=== PATIENT | female | born 1985 | race Caucasian/White ===

== ENCOUNTER 2017-01-20 05:50 | Emergency (ER) | payer MEDICAID ==
[~2017-01-20] VITALS: Ht 154.9 cm; Wt 73.6 kg
[~2017-01-20 05:50] MED LIST: HYDR-3498 PO; IBUP-1542 PO
[2017-01-20 05:52] VITALS: Ht 154.9 cm; Wt 73.6 kg
[2017-01-20] MEDS ORDERED: ACET325T33 PO (06:22)
--- NOTE | 2017-01-20 07:52 | ERD ---
ER Documentation Chief Complaint Date/Time DATE: 01/20/17 TIME: 07:50 Chief Complaint sore throat x 1 week, cough x 2 days HPI Patient is a 31-year-old female with no medical problems who presents with sore throat and cough. She has had these symptoms for the past 2 days. She said that she had a fever a few days ago. She tried Tylenol. She is currently taking amoxicillin for urine infection over the past 2 days. She is . Upon review of old medical records the patient has multiple visits to the ER for various complaints. She does not remember the name of her primary doctor. ROS All systems reviewed and are negative except as per history of present illness. Medications Home Meds Active Scripts Acetaminophen* (Tylenol*) 325 Mg Tablet, 2 TAB PO Q8 Y for PAIN AND OR ELEVATED TEMP, #20 TAB Prov:DANIEL TERRELL MD 01/20/17 Hydrocodone Bit-Acetaminophen* ([place]*) 5-325 Mg Tab, 1 TAB PO QHS Y for PAIN, # 10 TAB 0 Refills Prov:ENRIQUE PRUITT PA-C 11/25/15 Ibuprofen* (Motrin*) 600 Mg Tab, 600 MG PO BID, #30 TAB 0 Refills Prov:ENRIQUE PRUITT PA-C 11/25/15 Allergies Allergies: Coded Allergies: No Known Allergy (Unverified , 01/20/17) PMhx/Soc History of Surgery: Yes (c/section, cholecystectomy) Anesthesia Reaction: No Hx Neurological Disorder: No Hx Respiratory Disorders: No Hx Cardiac Disorders: No Hx Psychiatric Problems: No Hx Miscellaneous Medical Probl: No Hx Alcohol Use: No Hx Substance Use: No Hx Tobacco Use: No Smoking Status: Never smoker FmHx Family History: diabetes Physical Exam Vitals Vital Signs Date Time Temp Pulse Resp B/P Pulse Ox O2 Delivery O2 Flow Rate FiO2 01/20/17 05:52 98.5 104 20 119/58 99 Physical Exam Const: No acute distress Head: Atraumatic Eyes: Normal Conjunctiva ENT: Normal External Ears, Nose and Mouth. No signs of tonsillar swelling, uvular deviation, or stridor over the neck Neck: Full range of motion..~ No meningismus. No stridor over the neck Resp: Clear to auscultation bilaterally Cardio: Regular rate and rhythm, no murmurs Abd: Soft, abdomen without pain Skin: No petechiae or rashes Back: No midline or flank tenderness Ext: No cyanosis, or edema Neur: Awake and alert Psych: Normal Mood and Affect Procedures/MDM Patient is a 31-year-old female presents with acute sore throat. She also has cough. She is taking amoxicillin which would be an appropriate antibiotic if she does have pharyngitis or bronchitis. At this point however I see no signs of acute pharyngitis or peritonsillar abscess or retropharyngeal abscess or epiglottitis. I believe outpatient management is appropriate. The patient is otherwise well-appearing and well-hydrated. She has no voice changes. She can follow-up with her primary doctor within 24-48 hours and can return if symptoms worsen. I believe outpatient management is appropriate. Departure Diagnosis: Primary Impression: Sore throat Condition: Fair Patient Instructions: Self-Care for Sore Throats Referrals: Your doctor Additional Instructions: Llame al doctor nombrado abajo (Referral Sources) MAANA y jewels mario alberto MADDIE PARA DENTRO DE MARIO ALBERTO SEMANA. Dgale a la secretaria que nosotros le instruimos hacer esta maddie.Avise o llame si long condicin se empeora antes de la maddie. DANIEL TERRELL MD Jan 20, 2017 07:52
== END 2017-01-20 06:31 | disposition home or self-care (01) ==
LOC: FTE 05:50
DX: O99.512 Diseases of the respiratory system complicating pregnancy, second trimester (principal); J02.9 Acute pharyngitis, unspecified; Z3A.22 22 weeks gestation of pregnancy
CPT/HCPCS: 99283

== ENCOUNTER 2017-03-17 11:08 | Outpatient (CLI) | payer MEDICAID ==
[~2017-03-17 11:08] MED LIST changes: +ACET325T33 PO; +CALCIUM BU; +IRON BU; +PREN-19 PO
[2017-03-17 11:50] VITALS: BP 118/58; PULSE 73; RESP 18
[2017-03-17] MEDS ORDERED: PRENAT PO (11:56)
[2017-03-17] MEDS ORDERED: FERR325C PO (11:57)
--- NOTE | 2017-03-17 13:04 | RADRPT ---
PROCEDURE: Limited obstetric ultrasound CLINICAL INDICATION: Pain , labor TECHNIQUE: Multiple transverse and longitudinal grayscale images of the pelvis were obtained miranda sabdominally and transvaginally.. COMPARISON: None FINDINGS: The cervix is closed with a length of 4.1 cm. There is a single viable intrauterine gestation. Cardiac activity is present with 140 beats per min addie. There is a vertex presentation. The placenta is anterior. There is no evidence for an abruption or placenta previa. RPTAT: AA IMPRESSION: Cervix length measures 4.1 cm. .Meek Persaud MD, Date Time Electronically viewed and signed by .Meek Persaud MD, on 03/17/2017 13:04 .S/
== END 2017-03-17 14:34 | disposition home or self-care (01) ==
LOC: OBT 11:08 → L-D 11:08 → OBT 14:34
PROVIDERS: ATTEND Obstetrics & Gynecology
DX: O47.00 False labor before 37 completed weeks of gestation, unspecified trimester (principal); Z3A.00 Weeks of gestation of pregnancy not specified
CPT/HCPCS: 76817; Z7500; G0463

== ENCOUNTER 2017-04-30 10:12 | Inpatient (IN) | payer MEDICAID ==
[~2017-04-30] VITALS: Ht 152.4 cm; Wt 78.0 kg
[~2017-04-30 10:12] MED LIST changes: -ACET325T33 PO; -CALCIUM BU; +FERR325C PO; -HYDR-3498 PO; -IBUP-1542 PO; -IRON BU; -PREN-19 PO; +PRENAT PO
[2017-04-30] MEDS ORDERED: ONDANSETRON 4 MG INJ IV STA (10:44)
[2017-04-30] MEDS ORDERED: OXYTOCIN 30 UNITS/LR 500 ML IV PRN ×2 (11:00→17:00)
[2017-04-30] MEDS ORDERED: OXYTOCIN 30 UNITS/LR 500 ML IV SCH (11:00)
[2017-04-30] MEDS ORDERED: CARBOPROST 250 MCG INJ IM PRN ×2 (11:00→17:00)
[2017-04-30] MEDS ORDERED: CEFAZOLIN 2 GM/50 ML (PMX) 50 ML IV SCH (11:00)
[2017-04-30] MEDS ORDERED: MISOPROSTOL 200 MCG TAB PR PRN ×2 (11:00→17:00)
[2017-04-30] MEDS ORDERED: CITRIC ACID/SODIUM CITRATE 15 ML CUP PO ONE ×2 (11:00)
[2017-04-30] MEDS ORDERED: METHYLERGONOVINE 0.2 MG INJ IM PRN ×2 (11:00→17:00)
[2017-04-30 11:08] LABS: ADD SCAN DIFF NO
[2017-04-30 11:10] LABS: BASOPHILS % 0.1 % (0.0-2.0); EOSINOPHILS # 0.1 10^3/ul (0.0-0.5); HEMOGLOBIN 10.8 g/dl (12.0-16.0); LYMPHOCYTES # 1.5 10^3/ul (0.8-2.9); LYMPHOCYTES % 20.5 % (15.0-51.0); MEAN CORPUSCULAR HEMOGLOBIN 30.2 pg (29.0-33.0); MEAN CORPUSCULAR HGB CONC 32.7 g/dl (32.0-37.0); MEAN CORPUSCULAR VOLUME 92.2 fl (82.0-101.0); MONOCYTE # 0.6 10^3/ul (0.3-0.9); MONOCYTES % 8.1 % (0.0-11.0); NEUTROPHILS % 69.3 % (39.0-77.0); PLATELET COUNT 283 10^3/UL (140-415); RED BLOOD COUNT 3.58 10^6/ul (4.20-5.40); RED CELL DISTRIBUTION WIDTH 15.1 % (11.5-14.5); WHITE BLOOD COUNT 7.3 10^3/ul (4.8-10.8)
[2017-04-30 11:40] LABS: INR 0.95; PROTIME 12.7 Sec (12.2-14.2)
[2017-04-30 12:05] LABS: PARTIAL THROMBOPLASTIN TIME 27.9 Sec (25.0-35.0)
[2017-04-30] MEDS ORDERED: DEXAMETHASONE 4 MG/ML 1 ML INJ ONE (12:25)
[2017-04-30] MEDS ORDERED: morphine SULFATE/PF (10 MG/10 ML) INJ ONE (12:25)
[2017-04-30] MEDS ORDERED: PHENYLephrine (100 MCG/ML) 5ML SYG ONE (12:25)
[2017-04-30] MEDS ORDERED: FENTAnyl 50 MCG/ML VIAL ONE (12:25)
[2017-04-30] MEDS ORDERED: OXYTOCIN 30 UNITS/LR 500 ML IV ONE (13:29)
[2017-04-30] MEDS ORDERED: NALOXONE (0.4 MG/ML) INJ IV PRN (13:30)
[2017-04-30] MEDS ORDERED: ZOLPIDEM 5 MG TAB PO PRN (13:30)
[2017-04-30] MEDS ORDERED: PROCHLORPERAZINE 10 MG INJ IV PRN (13:30)
[2017-04-30] MEDS ORDERED: HYDROmorphONE 1 MG/ML SYG IV PRN ×2 (13:30)
[2017-04-30] MEDS ORDERED: ONDANSETRON 4 MG INJ IV PRN (13:30)
[2017-04-30] MEDS ORDERED: DIPHENHYDRAMINE 50 MG INJ IV PRN (13:30)
--- NOTE | 2017-04-30 13:48 | HP ---
Date/Time of Note Date/Time of Note DATE: 04/30/17 TIME: 13:45 OB - History Hx of Present Free Text/Dictation admitted for repeat C/S + BTL Last Menstrual Period: Aug 16, 2016 Estimated Due Date: May 07, 2017 : 3 Para: 2 Care: Good Care Ultrasounds: Normal mid trimester US Obstetrical Complications: None Medical Complications: None Past Family/Social History * Past Medical, Surgical, Family and Obstetric Histories reviewed from chart. Blood Type: O+ Rubella: immune RPR/VDRL: Negative GBS Status: Positive HBsAG: Negative OB Admission Exam Physical Exam HEENT: WNL Heart: Rhythm Normal Lungs: Clear, Equal Abdomen: WNL Extremities: Normal Reflexes: Normal Cervical Dilatation: None Effacement: 0% Station: -3 Membranes: Intact Amniotic Fluid: Clear Heart Rate: 150's Accelerations: Accelerations Present Decelerations: No Decelerations Varibility: Marked Contractions on Admission: None Last 72 hours Lab Results CBC & BMP 04/30/17 10:30 OB Assessment/Plan Reason for admission: section Other Assessment: term gestation previous C/S X 2 desired sterilization Other plan: repeat C/S + BTL MADHURI SIMEON MD Apr 30, 2017 13:48
--- NOTE | 2017-04-30 13:51 | OPR ---
Operative Report Planned Procedure Procedure date Apr 30, 2017 Procedure(s) repeat C/S Performed by: MADHURI SIMEON MD Assisting provider: LAN WILBURN MD Anesthesiologist: ASHISH SPEARS DO Anesthesia Type: spinal Procedure Description Under satisfactory anaesthesia a Pfannenstiel incision was made two fingerbreadth above and parallel to the symphysis of pubis around the previous scar and previous scar was removed Incision was extended laterally to the border of the Recti muscles on either sides. Incision was carried down with sharp and blunt dissection until fascia was reached. Anterior Recti muscle fascia was incised in mid portion and incision extended laterally to the border of skin incision. Fascia was mobilized from muscle superiorly and Recti muscles were from midline using sharp and blunt dissection. Peritoneum was visualized; Avoiding bowel and bladder it was incised . Incision was extended superiorly and inferiorly. Bladder blade was placed. Posterior peritoneum covering the lower segment of the uterus and lower segment of the uterus were incised.Low transverse uterine incision was made on lower segment of the uterus. Incision extended laterally to the border of Round Lig. on either sides and baby was delivered from OT. position . Amniotic fluid appeared clear. Cord blood was obtained and cord had 3 vessels . Placenta was delivered spontaneously and appeared intact and complete. Intrauterine cavity was rubbed with a laparotomy sponge. Uterine incision was closed in 2 layers using running stitches of No1 Monocryl. Hemostasis appeared secure. Ovaries and Fallopian tubes were within normal limits. Bilateral Tubal Ligation was performed by following procedure: R fallopian tube was raised in mid portion; a Collette clamp was placed below the fimbriae extending to proximal portion of the fallopian tube. Another clamp was placed parallel to the first and after incising the fallopian tube the stump was sutured using 0 Vicryl stitch. Hemostasis was secure . Same procedure was done on fallopian tube on the opposite side. Hemostasis appeared to be secure on ligated sites of either fallopian tubes. Announcing needle, lap sponge and instrument count to be correct abdomen was closed in layers as follows: Peritoneum and Recti muscles with running stitches of 20 Vicryl. Fascia with running stitch of No 1 PDS. Subcutaneous tissue with running stitches of 20 Chromic and skin was closed using kathy. Patient tolerated the procedure well and was transferred to [facility] in good condition. Post-Procedure Post-procedure diagnosis S/P C/S + BTL Findings: Live Baby Specimen removed: Yes Specimen description segments of R and L fallopian tubes Complications: None Pt Condition post procedure: stable Disposition: PACU Physician Certification I, the undersigned physician, hereby certify that I have discussed the procedure described in this consent form with this patient (or the patient's legal site safety representative), including: * The risk and benefits of the procedure; * Any adverse reactions that may reasonably be expected to occur; * Any alternative efficacious methods of treatment which may be medically viable ; * The potential problems that may occur during recuperation; * Potential for blood transfusion and associated risks/benefits; and * Any research or economic interest I may have regarding this treatment. I further certify that the patient/legally responsible person was encouraged to ask question and that all questions were answered. MADHURI SIMEON MD Apr 30, 2017 13:51
[2017-04-30 16:30] VITALS: BP 117/51; PULSE 65; RESP 18
[2017-04-30] MEDS: LACTATED RINGER'S 1,000 ML IV SCH (16:37)
[2017-04-30] MEDS ORDERED: LANOLIN 7 GM TUBE TOP PRN (17:00)
[2017-04-30] MEDS ORDERED: ACETAMINOPHEN/CODEINE #3 TAB PO PRN (17:00)
[2017-04-30] MEDS ORDERED: OXYCODONE/ACETAMINOPHEN (5/325) TAB PO PRN (17:00)
[2017-04-30] MEDS ORDERED: NA PHOSPHATE/BIPHOS 133 ML ENEMA PR PRN (17:00)
[2017-04-30] MEDS: KETOROLAC 30 MG INJ IV PRN (17:31)
[2017-04-30] MEDS: CLINDAMYCIN 300 MG CAP PO SCH ×2 (17:34→23:51)
[2017-04-30] MEDS: CEFAZOLIN 2 GM/50 ML (PMX) 50 ML IV SCH (17:35)
[2017-04-30 20:00] VITALS: BP 104/45; PULSE 64; RESP 18
[2017-04-30] MEDS: SENNA/DOCUSATE NA (8.6MG/50MG) TAB PO SCH (21:12)
[2017-04-30] MEDS: IBUPROFEN 800 MG TAB PO SCH (22:00)
[2017-05-01] MEDS: CEFAZOLIN 2 GM/50 ML (PMX) 50 ML IV SCH ×2 (01:20→08:35)
[2017-05-01 04:30] VITALS: BP 112/53; PULSE 63; RESP 18
[2017-05-01] MEDS: LACTATED RINGER'S 1,000 ML IV SCH ×2 (05:15→08:28)
[2017-05-01] MEDS: CLINDAMYCIN 300 MG CAP PO SCH ×4 (05:29→23:34)
[2017-05-01] MEDS: IBUPROFEN 800 MG TAB PO SCH ×3 (06:00→21:27)
[2017-05-01 08:16] LABS: ADD SCAN DIFF NO
[2017-05-01 08:18] LABS: BASOPHILS % 0.2 % (0.0-2.0); EOSINOPHILS % 0.3 % (0.0-7.0); HEMATOCRIT 31.6 % (37.0-47.0); HEMOGLOBIN 10.1 g/dl (12.0-16.0); LYMPHOCYTES % 19.9 % (15.0-51.0); MEAN CORPUSCULAR HEMOGLOBIN 29.5 pg (29.0-33.0); MEAN CORPUSCULAR VOLUME 92.4 fl (82.0-101.0); MONOCYTE # 0.8 10^3/ul (0.3-0.9); MONOCYTES % 7.7 % (0.0-11.0); NEUTROPHIL # 7.1 10^3/ul (1.6-7.5); NEUTROPHILS % 71.3 % (39.0-77.0); PLATELET COUNT 246 10^3/UL (140-415); RED BLOOD COUNT 3.42 10^6/ul (4.20-5.40); WHITE BLOOD COUNT 9.9 10^3/ul (4.8-10.8)
[2017-05-01 08:35] VITALS: BP 98/48; PULSE 74; RESP 17
[2017-05-01] MEDS: SENNA/DOCUSATE NA (8.6MG/50MG) TAB PO SCH ×2 (08:35→21:27)
[2017-05-01] MEDS ORDERED: BISACODYL 10 MG SUPP PR ONE (09:00)
[2017-05-01 12:00] VITALS: BP 96/50; PULSE 65; RESP 16
--- NOTE | 2017-05-01 12:08 | PN ---
Date/Time of Note Date/Time of Note DATE: 05/01/17 TIME: 12:06 Assessment/Plan VTE Prophylaxis VTE Prophylaxis Intervention: ambulation Lines/Catheters IV Catheter Type (from Nrsg): Peripheral IV Assessment/Plan Assessment/Plan POD # 1 S/P C/S + BTL will advance diet and ambulate Subjective 24 Hr Interval Summary NO BM passing flatus Constitutional: BM, ambulates, flatus, improved, no complaints, urine output Pain Control: well controlled Exam/Review of Systems Vital Signs Vitals Vital Signs Date Time Temp Pulse Resp B/P Pulse Ox O2 Delivery O2 Flow Rate FiO2 05/01/17 11:39 94 21 05/01/17 08:35 98.5 74 17 98/48 Room Air Intake and Output 04/30/17 04/30/17 05/01/17 15:00 23:00 07:00 Intake Total 175 ml 50 ml Output Total 200 ml Balance -25 ml 50 ml Exam Free Text/Dictation abdomen: Soft BS + Incision: covered Constitutional: alert, oriented, well developed Psych: nl mood/affect, no complaints Head: atraumatic, normocephalic Eyes: EOMI, nl conjunctiva, nl lids, nl sclera ENMT: mucosa pink and moist, nl external ears & nose, nl lips & teeth, nl nasal mucosa & septum Neck: non-tender, supple Respiratory: clear to auscultation, normal air movement Cardiovascular: nl pulses, regular rate and rhythm Gastrointestinal: nl liver, spleen, non-tender, soft Drains NONE Musculoskeletal: nl extremities to inspection, nl gait and stance Extremities: normal pulses Neurological: ETL MANAGER II-XII intact, nl mental status, nl speech, nl strength Skin: nl turgor, rash or lesions Lymph: nl lymph nodes Results Result Diagram: 05/01/17 0750 MADHURI SIMEON MD May 01, 2017 12:08
[2017-05-01] MEDS: KETOROLAC 30 MG INJ IV PRN (12:20)
--- NOTE | 2017-05-01 13:44 | PD.PPDC ---
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
[2017-05-01] MEDS ORDERED: IBUP800T25 PO (13:45)
[2017-05-01] MEDS ORDERED: Oxycodone/Acetamin (5/325) PO (13:45)
[2017-05-01 16:00] VITALS: BP 103/51; PULSE 68; RESP 16
[2017-05-01 19:35] VITALS: BP 114/62; PULSE 64; RESP 18
[2017-05-02 03:35] VITALS: BP 106/58; PULSE 69; RESP 18
[2017-05-02] MEDS: CLINDAMYCIN 300 MG CAP PO SCH ×3 (05:27→18:19)
[2017-05-02] MEDS: IBUPROFEN 800 MG TAB PO SCH ×3 (05:27→21:28)
[2017-05-02] MEDS: SENNA/DOCUSATE NA (8.6MG/50MG) TAB PO SCH ×2 (08:24→21:28)
[2017-05-02 08:30] VITALS: BP 116/61; PULSE 67; RESP 17
[2017-05-02 16:00] VITALS: BP 100/52; PULSE 69; RESP 17
--- NOTE | 2017-05-02 16:01 | PN ---
Date/Time of Note Date/Time of Note DATE: 05/02/17 TIME: 15:58 OB Subjective Subjective Subjective passing fltus no b.m OB Objective Objective Objective vss afebrile abdomen sof wound dry lochia min calf no tenderness OB Assessment/Plan Other Assessment: stable post c/s #2 Other plan: d/s home in am GENE THOMAS MD May 02, 2017 16:01
--- NOTE | 2017-05-02 18:36 | DS ---
Date/Time of Note Date/Time of Note home next day DATE: 05/02/17 TIME: 18:34 Obstetrical Discharge Record Final Diagnosis Final Diagnosis: Term delivered Vaginal Delivery Obstetrical Delivery: Bilateral Tubal Ligation Section Section: Repeat Condition on Discharge Physical Assessment Last Vitals: see nurses notes Voiding: Yes Bowel Movement: Yes Breast: Soft, non-tender, Filling Fundus: Firm Abdomen and Incision: soft bs + incision: healing Episiotomy: NA Calf Tenderness: No Patient Condition: Good MADHURI SIMEON MD May 02, 2017 18:36
--- NOTE | 2017-05-02 18:38 | DS ---
Date/Time of Note Date/Time of Note DATE: 05/02/17 TIME: 18:36 Discharge Summary Admission/Discharge Info Admit Date/Time Apr 30, 2017 at 10:12 Discharge Date/Time 05/03/2017 Final Diagnosis S/P C/S + BTL Patient Condition: Good Procedures repeat C/S + BTL Hx of Present Illness 31 y/o female had repeat C/S + BTL Hospital Course uncomplicated Home Meds Active Scripts [Oxycodone/Acetamin (5/325)] 1 TAB TAB No Conflict Check, 2 TAB PO Q4H Y for PAIN LEVEL 6-10, #30 0 Refills Prov:MADHURI SIMEON MD 05/01/17 Ibuprofen* (Ibuprofen*) 800 Mg Tablet, 800 MG PO Q8, #30 TAB 0 Refills Prov:MADHURI SIMEON MD 05/01/17 Reported Medications Ferrous Sulfate (Iron) Unknown Strength Capsule.er, PO, CAP 03/17/17 Multivit/Min/Fol Ac/Iron/Pren* ( S*) 1 Tab Tab, 1 TAB PO DAILY, TAB 03/17/17 Follow-up Plan 2-3 days in clinic for staple removal Primary Care Provider Care Physician No Primary MADHURI SIMEON MD May 02, 2017 18:38
[2017-05-02 19:45] VITALS: BP 119/58; PULSE 67; RESP 18
[2017-05-03] MEDS: CLINDAMYCIN 300 MG CAP PO SCH ×3 (00:14→11:32)
[2017-05-03 04:10] VITALS: BP 116/65; PULSE 61; RESP 17
[2017-05-03] MEDS: IBUPROFEN 800 MG TAB PO SCH ×2 (05:33→14:07)
[2017-05-03 07:56] VITALS: BP 114/63; PULSE 60; RESP 20
[2017-05-03] MEDS ORDERED: DIPHTH/TET/ACEL PERTUSS (ADULT) 0.5 ML VIAL IM* ONE (09:00)
[2017-05-03] MEDS ORDERED: MEASLES,MUMPS,RUBELLA VACCINE INJ SC* ONE (09:00)
[2017-05-03] MEDS: SENNA/DOCUSATE NA (8.6MG/50MG) TAB PO SCH (09:11)
== END 2017-05-03 14:50 | disposition home or self-care (01) | DRG 766 ==
LOC: L-D 10:12 → PP1 16:32
PROVIDERS: ADMIT Obstetrics & Gynecology; ATTEND Obstetrics & Gynecology
PROC: 0UL70ZZ Occlusion of Bilateral Fallopian Tubes, Open Approach (ICD-10-PCS; 2017-04-30)
PROC: 10D00Z1 Extraction of Products of Conception, Low, Open Approach (ICD-10-PCS; principal; 2017-04-30 12:30)
DX: O34.211 Maternal care for low transverse scar from previous cesarean delivery (principal); Z30.2 Encounter for sterilization; Z3A.39 39 weeks gestation of pregnancy; Z37.0 Single live birth
CPT/HCPCS: 85025; 85610; 85730; 86592; 86850; 86900; 86901; 87340; 88302; 90715; 94760; 99464; J0690; J1100; J1885; J2274; J2370; J2405; J2590; J3010; J7120

== ENCOUNTER 2017-05-19 10:39 | Emergency (ER) | payer MEDICAID ==
[~2017-05-19] VITALS: Ht 152.4 cm; Wt 67.5 kg
[~2017-05-19 10:39] MED LIST changes: +IBUP800T25 PO; +Oxycodone/Acetamin (5/325) PO
[2017-05-19 10:45] VITALS: Ht 152.4 cm; Wt 67.5 kg
[2017-05-19] MEDS ORDERED: CLIN-73 PO (11:06)
--- NOTE | 2017-05-19 11:19 | ERD ---
ER Documentation Chief Complaint Date/Time DATE: 05/19/17 TIME: 11:15 Chief Complaint Sent from for eval infection at site HPI Patient is a 31-year-old female who is status post on April 30. She is here because she went to an outside clinic and told her that they think her C- section wound might be infected so they told her to come here for treatment. She has some burning along the site. Denies fever. Denies any redness bleeding or drainage. She is currently breast-feeding. ROS All systems reviewed and are negative except as per history of present illness. Medications Home Meds Active Scripts Clindamycin Hcl* (Clindamycin Hcl*) 300 Mg Capsule, 300 MG PO TID for 10 Days, CAP Prov:NESTOR MASON PA-C 05/19/17 [Oxycodone/Acetamin (5/325)] 1 TAB TAB No Conflict Check, 2 TAB PO Q4H Y for PAIN LEVEL 6-10, #30 0 Refills Prov:MADHURI SIMEON MD 05/01/17 Ibuprofen* (Ibuprofen*) 800 Mg Tablet, 800 MG PO Q8, #30 TAB 0 Refills Prov:MADHURI SIMEON MD 05/01/17 Reported Medications Ferrous Sulfate (Iron) Unknown Strength Capsule.er, PO, CAP 03/17/17 Multivit/Min/Fol Ac/Iron/Pren* ( S*) 1 Tab Tab, 1 TAB PO DAILY, TAB 03/17/17 Allergies Allergies: Coded Allergies: No Known Allergy (Unverified , 01/20/17) PMhx/Soc History of Surgery: Yes (c/section, cholecystectomy) Anesthesia Reaction: No Hx Neurological Disorder: No Hx Respiratory Disorders: No Hx Cardiac Disorders: No Hx Psychiatric Problems: No Hx Miscellaneous Medical Probl: No Hx Alcohol Use: No Hx Substance Use: No Hx Tobacco Use: No FmHx Family History: No diabetes Physical Exam Vitals Vital Signs Date Time Temp Pulse Resp B/P Pulse Ox O2 Delivery O2 Flow Rate FiO2 05/19/17 10:45 97.8 66 20 117/56 98 Physical Exam Const: [] Head: Atraumatic Eyes: Normal Conjunctiva ENT: Normal External Ears, Nose and Mouth. Neck: Full range of motion..~ No meningismus. Resp: Clear to auscultation bilaterally Cardio: Regular rate and rhythm, no murmurs Abd: Soft, non tender, non distended. Normal bowel sounds Skin: Healing scar with some mild erythema, no surrounding erythema , no bleeding or drainage, small area of fluctuance over the right edge approximately 1 cm in diameter Procedures/MDM Patient has mild cellulitis on her surgery site. Her vital signs are normal she is afebrile well-appearing. She is currently breast-feeding. She will be started on clindamycin I recommended 2 day wound check. Recommended this patient follow up with her primary care doctor within 48 hours or return to the emergency room for any worsening of symptoms. However this time I do believe there is suitable for outpatient management. I answered all their questions and they agreed with the plan and were discharged home. Departure Diagnosis: Primary Impression: Cellulitis Condition: Stable Patient Instructions: Cellulitis Additional Instructions: Llame al doctor MACHANCE y jewels mario alberto MADDIE PARA DENTRO DE 1-2 [place].Dgale a la secretaria que nosotros le instruimos hacer esta maddie.Avise o llame si long condicin se empeora antes de la maddie. Regresa aqui si peor o no mejor. NESTOR MASON PA-C May 19, 2017 11:19
== END 2017-05-19 11:28 | disposition home or self-care (01) ==
LOC: FTE 10:39
DX: O86.0 Infection of obstetric surgical wound (principal); L03.311 Cellulitis of abdominal wall; B96.89 Other specified bacterial agents as the cause of diseases classified elsewhere
CPT/HCPCS: 99283

== ENCOUNTER 2017-05-19 16:19 | Emergency (ER) | payer MEDICAID ==
[~2017-05-19] VITALS: Ht 152.4 cm; Wt 68.0 kg
[~2017-05-19 16:19] MED LIST changes: +CLIN-73 PO
[2017-05-19 16:43] VITALS: Ht 152.4 cm; Wt 68.0 kg
--- NOTE | 2017-05-19 17:15 | ERD ---
ER Documentation Chief Complaint Date/Time DATE: 05/19/17 TIME: 17:13 Chief Complaint Patient here for a recheck HPI This 31-year-old female presents for recheck on the postop wound. She seen here this morning for postoperative pain. There is no obvious signs of infection but she was administered a prescription of clindamycin for possible early infection. She has not had a chance to fill the prescription. She went home and did have some bleeding from the right lateral aspect wound. She has no fevers or vomiting. ROS All systems reviewed and are negative except as per history of present illness. Medications Home Meds Active Scripts Clindamycin Hcl* (Clindamycin Hcl*) 300 Mg Capsule, 300 MG PO TID for 10 Days, CAP Prov:NESTOR MASON PA-C 05/19/17 [Oxycodone/Acetamin (5/325)] 1 TAB TAB No Conflict Check, 2 TAB PO Q4H Y for PAIN LEVEL 6-10, #30 0 Refills Prov:MADHURI SIMEON MD 05/01/17 Ibuprofen* (Ibuprofen*) 800 Mg Tablet, 800 MG PO Q8, #30 TAB 0 Refills Prov:MADHURI SIMEON MD 05/01/17 Reported Medications Ferrous Sulfate (Iron) Unknown Strength Capsule.er, PO, CAP 03/17/17 Multivit/Min/Fol Ac/Iron/Pren* ( S*) 1 Tab Tab, 1 TAB PO DAILY, TAB 03/17/17 Allergies Allergies: Coded Allergies: No Known Allergy (Unverified , 01/20/17) PMhx/Soc History of Surgery: Yes (c/section, cholecystectomy) Anesthesia Reaction: No Hx Neurological Disorder: No Hx Respiratory Disorders: No Hx Cardiac Disorders: No Hx Psychiatric Problems: No Hx Miscellaneous Medical Probl: No Hx Alcohol Use: No Hx Substance Use: No Hx Tobacco Use: No Physical Exam Vitals Vital Signs Date Time Temp Pulse Resp B/P Pulse Ox O2 Delivery O2 Flow Rate FiO2 05/19/17 16:43 97.0 57 20 131/63 98 Physical Exam Const: [], [id number] per Head: Atraumatic Eyes: Normal Conjunctiva ENT: Normal External Ears, Nose and Mouth. Neck: Full range of motion..~ No meningismus. Resp: Clear to auscultation bilaterally Cardio: Regular rate and rhythm, no murmurs Abd: Soft, non tender, non distended. Normal bowel sounds Skin: No petechiae or rashes. There is a healing postoperative wound. There is a small superficial dehiscence on the right lateral aspect approximately 0.5 cm with scant expressible blood. There is no obvious erythema or purulent discharge. Back: No midline or flank tenderness Ext: No cyanosis, or edema Neur: Awake and alert Psych: Normal Mood and Affect Procedures/MDM Patient presents with an open wound without obvious signs of infection. May be a seroma. She will be given instructions to continue empiric antibiotics but there is no evidence of sepsis or deep abdominal tenderness or significant cellulitis or abscess. Patient is advised to follow- up with OB this week return for fevers, vomiting, new worsening symptoms as directed after instructions. Wound was redressed and instructions were given on wound care. Departure Diagnosis: Primary Impression: Seroma infection, postoperative Additional Impression: Encounter for wound re-check Condition: Stable Patient Instructions: Seroma, Postsurgical Additional Instructions: continua antibioticos. Cheque otro vez con long doctor primario en el proximo roach or regresa para mas o nueva simptomas. RACHEL SERRANO MD May 19, 2017 17:15
== END 2017-05-19 17:45 | disposition home or self-care (01) ==
LOC: FTE 16:19
DX: K91.872 Postprocedural seroma of a digestive system organ or structure following a digestive system procedure (principal)
CPT/HCPCS: 99283

== ENCOUNTER 2018-09-29 11:03 | Emergency (ER) | END 2018-09-29 13:40 | disposition home or self-care (01) ==

== ENCOUNTER 2018-12-18 15:14 | Emergency (ER) | payer MEDICAID ==
[~2018-12-18] VITALS: Ht 162.6 cm; Wt 61.2 kg
[~2018-12-18 15:14] MED LIST changes: -CLIN-73 PO; +CLIN300C10 PO; +IBUP-1542 PO; +IBUP-1544 PO; -IBUP800T25 PO; +PENI500T PO
[2018-12-18 15:21] VITALS: BP 121/68; PULSE 86; RESP 19; Ht 162.6 cm; Wt 61.2 kg
[2018-12-18] MEDS ORDERED: KETOROLAC 30 MG INJ IM STA (15:51)
[2018-12-18] MEDS ORDERED: IBUP800T48 PO (17:38)
[2018-12-18] MEDS ORDERED: FIORICET PO (17:38)
--- NOTE | 2018-12-18 18:40 | ERD ---
ER Documentation Chief Complaint Chief Complaint bib self, cc: headache x5 days, light sensitive HPI 33-year-old female presents for headache times 5 days. The headache noted to be diffuse, rated 10 out of 10, pulsatile in nature she took ibuprofen 600 mg at home without relief. There is associated photophobia. Denies any vision changes. Denies chest pain or shortness of breath. ROS All systems reviewed and are negative except as per history of present illness. Medications Home Meds Active Scripts Acetamin/Butalbital/Caffeine* (Fioricet*) [id number] Tab, 1 TAB PO Q6H PRN for PAIN, #30 TAB Prov:VIC CROWDER DO 12/18/18 Ibuprofen* (Motrin*) 800 Mg Tab, 800 MG PO Q8H PRN for PAIN AND OR ELEVATED TEMP, #30 TAB Prov:VIC CROWDER DO 12/18/18 Ibuprofen* (Motrin*) 600 Mg Tab, 600 MG PO Q8 for 3 Days, #15 TAB Prov:MILES HUMPHREYS MD 09/29/18 Penicillin V Potassium* (Penicillin V K*) 500 Mg Tab, 500 MG PO QID for 10 Days, TAB Prov:MILES HUMPHREYS MD 09/29/18 Clindamycin Hcl* (Clindamycin Hcl*) 300 Mg Capsule, 300 MG PO TID for 10 Days, CAP Prov:NESTOR MASON PA-C 05/19/17 [Oxycodone/Acetamin (5/325)] 1 TAB TAB No Conflict Check, 2 TAB PO Q4H PRN for PAIN LEVEL 6-10, #30 0 Refills Prov:MADHURI SIMEON MD 05/01/17 Ibuprofen* (Ibuprofen*) 800 Mg Tablet, 800 MG PO Q8, #30 TAB 0 Refills Prov:MADHURI SIMEON MD 05/01/17 Reported Medications Ferrous Sulfate (Iron) Unknown Strength Capsule.er, PO, CAP 03/17/17 Multivit/Min/Fol Ac/Iron/Pren* ( S*) 1 Tab Tab, 1 TAB PO DAILY, TAB 03/17/17 Allergies Allergies: Coded Allergies: No Known Allergy (Unverified , 01/20/17) PMhx/Soc History of Surgery: Yes (c/section x2, cholecystectomy) Anesthesia Reaction: No Hx Neurological Disorder: No Hx Respiratory Disorders: No Hx Cardiac Disorders: No Hx Psychiatric Problems: No Hx Miscellaneous Medical Probl: No Hx Alcohol Use: No Hx Substance Use: No Hx Tobacco Use: No Physical Exam Vitals Vital Signs Date Temp Pulse Resp B/P (MAP) Pulse Ox O2 O2 Flow FiO2 Time Delivery Rate 12/18/18 98.6 86 19 121/68 100 15:21 (85) Physical Exam Const: No acute distress Head: Atraumatic, no temporal area tenderness to palpation Eyes: Normal Conjunctiva, pupils equal, round, reactive to light bilaterally ENT: Normal External Ears, bilateral tympanic membrane intact without erythema or bulging noted, Nose and Mouth. No tonsillar swelling or exudate noted Neck: Full range of motion. No meningismus, no bruits noted Resp: Clear to auscultation bilaterally Cardio: Regular rate and rhythm, no murmurs, bilateral radial and dorsalis pedis pulses intact Skin: No petechiae or rashes Ext: No cyanosis, or edema, 5 out of 5 muscular bilateral upper and lower extremities Neur: Awake and alert, bilateral upper and lower extremity sensation intact Psych: Normal Mood and Affect Results 24 hrs Laboratory Tests Test 12/18/18 16:06 POC Beta HCG, Qualitative NEGATIVE Current Medications Medications Dose Sig/Chiquis Start Time Status Last (Trade) Ordered Route PRN Stop Time Admin Dose Reason Admin Ketorolac 30 mg ONCE STAT 12/18/18 DC 12/18/18 Tromethamine IM 15:51 16:20 (Toradol) 12/18/18 15:52 Procedures/MDM Medical Decision Making: Differential diagnosis includes but not limited to primary headache, subarachnoid hemorrhage, meningitis, temporal arteritis, glaucoma, hypertension, cerebral ischemia, carotid or vertebral arterial dissection, brain tumor. Patient appeared well on physical examination, nontoxic appearing. No history of fever. There is low suspicion for meningitis. Given patient's age and no temporal area tenderness to palpation, low suspicion for temporal arteritis. Patient has no vision changes and pupils are reactive bilaterally, low suspicion for glaucoma. There is also no focal neurologic deficits to suggest a brain tumor. Patient has normal sensation and muscle strength, low suspicion for cerebral ischemia. Given headache is similar to prior headaches, patient possibly has a primary headache. In the ER patient given Toradol Symptoms improved with treatment. Patient given prescription for Motrin and Fioricet. Advised to continue with ibuprofen at home as needed. Patient advised to follow up with PCP in 1-2 days. Patient advised to return to ED for new or worsening symptoms. Patient stable on discharge from the ED. Disclaimer: Inadvertent spelling and grammatical errors are likely due to EHR/dictation software use and do not reflect on the overall quality of patient care. Also, please note that the electronic time recorded on this note does not necessarily reflect the actual time of the patient encounter. Departure Diagnosis: Primary Impression: Headache Condition: Fair Patient Instructions: Self-Care for Headaches Referrals: [facility] YOU HAVE RECEIVED A MEDICAL SCREENING EXAM AND THE RESULTS INDICATE THAT YOU DO NOT HAVE A CONDITION THAT REQUIRES URGENT TREATMENT IN THE EMERGENCY DEPARTMENT. FURTHER EVALUATION AND TREATMENT OF YOUR CONDITION CAN WAIT UNTIL YOU ARE SEEN IN YOUR DOCTORS OFFICE WITHIN THE NEXT 1-2 DAYS. IT IS YOUR RESPONSIBILITY TO MAKE AN APPOINTMENT FOR FOLOW-UP CARE. IF YOU HAVE A PRIMARY DOCTOR --you should call your primary doctor and schedule an appointment IF YOU DO NOT HAVE A PRIMARY DOCTOR YOU CAN CALL OUR PHYSICIAN REFERRAL HOTLINE AT IF YOU CAN NOT AFFORD TO SEE A PHYSICIAN YOU CAN CHOSE FROM THE FOLLOWING [facility]U [facility] [address] [facility]. [facility] [address] [facility] [facility] [address] [facility] [facility] [address] [facility]. [facility] [address] [facility] [facility]. [address] Additional Instructions: Llame al doctor MAANA y jewels mario alberto MADDIE PARA DENTRO DE 1-2 [place].Dgale a la secretaria que nosotros le instruimos hacer esta maddie.Avise o llame si long condicin se empeora antes de la maddie. Regresa aqui si peor o no mejor. VIC CROWDER DO Dec 18, 2018 18:40
== END 2018-12-18 17:50 | disposition home or self-care (01) ==
LOC: FTE 15:14
DX: R51 Headache (principal)
CPT/HCPCS: 81025; 96372; J1885; Z7502